=== PATIENT | female | born 2000 | race African-American/Black ===

== ENCOUNTER 2020-04-07 14:10 | Emergency (ER) | payer MEDICAID ==
[~2020-04-07] VITALS: Ht 172.7 cm; Wt 95.0 kg
[2020-04-07] MEDS ORDERED: SODIUM CHLORIDE 0.9% 1,000 ML IV ONE (14:31)
[2020-04-07 15:06] LABS: CLARITY URINE CLOUDY (CLEAR); COLOR URINE BLOODY (YELLOW); KETONES URINE 3+ (NEGATIVE); LEUKOCYTE ESTERASE URINE 2+ (NEGATIVE); NITRITE URINE POSITIVE (NEGATIVE); OCCULT BLOOD URINE 3+ (NEGATIVE); PH URINE 7.5 (4.5-8.0); PROTEIN URINE 3+ (NEGATIVE); SPECIFIC GRAVITY URINE 1.031 (1.005-1.030)
[2020-04-07 15:38] LABS: CHLORIDE 105 mEq/L (98-107)
[2020-04-07 15:45] LABS: BASOPHILS % 0.3 % (0.0-2.0); HEMATOCRIT. 38.9 % (36.0-48.0); HEMOGLOBIN. 13.3 g/dL (12.0-16.0); LYMPHOCYTES % 17.3 % (20.0-50.0); MEAN PLATELET VOLUME 8.7 fl (7.4-10.4); MONOCYTES % 6.3 % (2.0-8.0); NEUTROPHILS % 76.1 % (40.0-76.0); PLATELET 307 x1000/uL (130-400); RED BLOOD CELL COUNT 4.75 mill/uL (4.2-5.4); RED CELL DISTRIBUTION WIDTH 14.2 % (11.6-14.6)
[2020-04-07] MEDS ORDERED: CEFTRIAXONE 1 G PREMIX 50 ML IV ONE (15:45)
[2020-04-07 16:02] LABS: B-HCG QUANTITATIVE 42664 mIU/mL (<3)
[2020-04-07 16:30] VITALS: BP 131/74
== END 2020-04-07 16:30 | disposition home or self-care (01) ==
LOC: ER 14:10
DX: O23.11 Infections of bladder in pregnancy, first trimester (principal); Z3A.01 Less than 8 weeks gestation of pregnancy
CPT/HCPCS: 36415; 80053; 81003; 84702; 85025; 86850; 86900; 86901; 96361; 96365; 99284; J0696; J7030

== ENCOUNTER 2022-09-13 02:04 | Emergency (ER) | payer MEDICAID ==
[~2022-09-13] VITALS: Ht 154.9 cm; Wt 82.0 kg
[2022-09-13] MEDS ORDERED: MAGNESIUM 2 G PREMIX 50 ML IV STA (02:28)
[2022-09-13] MEDS ORDERED: ALBUTEROL (0.083%) 2.5MG/3ML NEB HHN STA (02:28)
[2022-09-13] MEDS ORDERED: METHYLPREDNISOLONE SOD SUCC 125 MG/2 ML VIAL IV STA (02:28)
[2022-09-13] MEDS ORDERED: IPRATROPIUM BROMIDE (0.02%) 0.5MG/2.5ML NEB HHN STA (02:28)
[2022-09-13] MEDS ORDERED: ONDANSETRON HCL 4MG/2ML INJ IV ONE (03:00)
[2022-09-13] MEDS ORDERED: P20 MT (05:53)
[2022-09-13] MEDS ORDERED: ALBU6.7H3 INH (05:53)
[2022-09-13 06:00] VITALS: BP 114/65
== END 2022-09-13 06:07 | disposition home or self-care (01) ==
LOC: ER 02:04
DX: J45.909 Unspecified asthma, uncomplicated (principal); F17.290 Nicotine dependence, other tobacco product, uncomplicated
CPT/HCPCS: 93005; 94644; 96365; 96375; 99285; 99406; J2405; J2930; J3475; Z7610

== ENCOUNTER 2022-12-04 07:48 | Emergency (ER) | payer MEDICAID ==
[~2022-12-04] VITALS: Ht 172.7 cm; Wt 85.0 kg
[~2022-12-04 07:48] MED LIST: ALBU6.7H3 INH; P20 MT
[2022-12-04] MEDS ORDERED: METHYLPREDNISOLONE SOD SUCC 125 MG/2 ML VIAL IV ONE (08:00)
[2022-12-04] MEDS ORDERED: FAMOTIDINE 20MG/2ML VIAL IV ONE (08:00)
[2022-12-04 08:27] VITALS: BP 112/67
[2022-12-04] MEDS ORDERED: P50 PO (09:48)
[2022-12-04] MEDS ORDERED: DIPH25CA83 PO (09:48)
[2022-12-04] MEDS ORDERED: EPIN0.3P3 IM (09:48)
== END 2022-12-04 10:31 | disposition home or self-care (01) ==
LOC: ER 07:48
DX: T78.40XA Allergy, unspecified, initial encounter (principal); X58.XXXA Exposure to other specified factors, initial encounter; J45.909 Unspecified asthma, uncomplicated
CPT/HCPCS: 96374; 96375; 99284; J2930; J3490; Z7610

== ENCOUNTER 2023-10-27 23:34 | Emergency (ER) | payer MEDICAID, OTHER ==
[~2023-10-27] VITALS: Ht 154.9 cm; Wt 89.0 kg
[~2023-10-27 23:34] MED LIST changes: +DIPH25CA83 PO; +EPIN0.3P3 IM; +P50 PO
[2023-10-27 23:40] VITALS: TEMP 98; O2SAT 100
[2023-10-27] MEDS ORDERED: PREDNISONE 20MG TABLET PO STA (23:44)
[2023-10-27] MEDS ORDERED: ALBUTEROL (0.083%) 2.5MG/3ML NEB HHN STA (23:44)
[2023-10-28 00:25] VITALS: PULSE 82; RESP 18
[2023-10-28] MEDS ORDERED: [UNRECOGNIZED DRUG - CODE] MC (02:11)
[2023-10-28] MEDS ORDERED: ALBU05 NEB (02:11)
[2023-10-28] MEDS ORDERED: ALBU6.7H15 INH (02:11)
[2023-10-28] MEDS ORDERED: P50 MT (02:11)
[2023-10-28 02:27] VITALS: BP 133/86; PULSE 107; RESP 18
== END 2023-10-28 02:30 | disposition home or self-care (01) ==
LOC: ER 23:34
DX: R06.03 Acute respiratory distress (principal); J45.901 Unspecified asthma with (acute) exacerbation; F12.10 Cannabis abuse, uncomplicated; Z79.899 Other long term (current) drug therapy
CPT/HCPCS: 71045; 94640; 99291; J7512; Z7610 ×3

== ENCOUNTER 2023-11-13 09:16 | Emergency (ER) | payer OTHER ==
[~2023-11-13] VITALS: Ht 167.6 cm; Wt 91.0 kg
[~2023-11-13 09:16] MED LIST changes: +ALBU05 NEB; +ALBU6.7H15 INH; +P50 MT; +[UNRECOGNIZED DRUG - CODE] MC
[2023-11-13 09:24] VITALS: O2SAT 97
[2023-11-13] MEDS ORDERED: CEFTRIAXONE SODIUM 500MG VIAL IM ONE (10:15)
[2023-11-13] MEDS ORDERED: DOXYCYCLINE HYCLATE 100MG CAPSULE PO ONE (10:15)
[2023-11-13] MEDS ORDERED: LIDOCAINE HCL 1% 20ML VIAL (Pyxis) INJ INFIL ONE (10:15)
[2023-11-13 10:28] LABS: CLARITY URINE CLOUDY (CLEAR); COLOR URINE YELLOW (YELLOW); GLUCOSE URINE NEGATIVE (NEGATIVE); KETONES URINE NEGATIVE (NEGATIVE); LEUKOCYTE ESTERASE URINE 3+ (NEGATIVE); NITRITE URINE NEGATIVE (NEGATIVE); OCCULT BLOOD URINE NEGATIVE (NEGATIVE); PH URINE 7.5 (4.5-8.0); PROTEIN URINE NEGATIVE (NEGATIVE); SPECIFIC GRAVITY URINE 1.013 (1.005-1.030); UROBILINOGEN URINE 0.2 E.U./dL (0.2-1.0)
[2023-11-13] MEDS ORDERED: PHEN-815 MT (10:48)
[2023-11-13] MEDS ORDERED: METR-167 MT (10:48)
[2023-11-13] MEDS ORDERED: DOXY100C5 MT (10:48)
[2023-11-13] MEDS ORDERED: SULF1TAB48 MT (10:48)
[2023-11-13 11:03] LABS: BACTERIA URINE TRACE; SQUAMOUS EPITHELIAL CELL URINE 1+ /lpf (RARE/1+)
[2023-11-13 11:06] LABS: RBC URINE 0-2 /hpf (0-2); TRICHOMONAS URINE FEW
[2023-11-13 11:38] VITALS: BP 124/87; PULSE 94; RESP 16; TEMP 98.5
[2023-11-15 04:08] LABS: CHLAMYDIA TRACHOMATIS NAA Negative (Negative); NEISSERIA GONORRHOEAE NAA Positive (Negative)
== END 2023-11-13 11:40 | disposition home or self-care (01) ==
LOC: ER 09:16
DX: N39.0 Urinary tract infection, site not specified (principal); F12.10 Cannabis abuse, uncomplicated; J45.909 Unspecified asthma, uncomplicated; Z79.899 Other long term (current) drug therapy
CPT/HCPCS: 87491; 87591; 81003; 81025; 87086; 87210; 87077; 96372; 99284; J0696; J3490; Z7610